=== PATIENT | female | born 1980 | race Caucasian/White ===

== ENCOUNTER → 2023-11-18 08:17 | Outpatient (REF) | payer BC, SELFPAY ==
[2023-11-18 09:02] LABS: % Basophils 0.5 % (0-2); % Eosinophils 3.3 % (0-6); % Immature Granulocytes 0.4 % (0-0.5); % Lymphocytes 27.2 % (20.5-51.1); % Monocytes 5.4 % (1.7-9.3); % Neutrophils 63.2 % (42.2-75.2); Absolute Eosinophils 0.2 10^3/uL (0-0.7); Absolute Lymphocytes 1.5 10^3/uL (1.2-3.4); Absolute Monocytes 0.3 10^3/uL (0.1-0.6); Absolute Neutrophils 3.5 10^3/uL (1.4-6.5); Hematocrit 37.2 % (37.0-47.0); Hemoglobin 12.6 g/dL (12.0-16.0); Mean Corp Hgb Conc. 33.9 g/dL (33.0-37.0); Mean Corpuscular Hgb 29.6 pg (27.0-31.0); Mean Corpuscular Volume 87.3 fL (81.0-99.0); Mean Platelet Volume 9.6 fL (7.4-10.4); Nucleated Red Blood Cells % 0 %; Platelet Count 221 10^3/uL (130-400); Red Blood Cell Count 4.26 10^6/uL (4.20-5.40); White Blood Cell Count 5.5 10^3/uL (4.8-10.8)
[2023-11-18 10:26] LABS: Erythrocyte Sed Rate 1 mm/hour (0-20)
[2023-11-18 11:21] LABS: ALT (SGPT) 15 U/L (0-35); AST (SGOT) 20 U/L (14-36); Albumin 3.9 g/dl (3.5-5.0); Alkaline Phosphatase 58 U/L (38-126); Blood Urea Nitrogen 12 mg/dl (7-17); Calcium 9.2 mg/dl (8.4-10.2); Carbon Dioxide 27 mmol/L (22-30); Chloride 102 mmol/L (98-107); Glucose 104 mg/dl (70-99); Potassium 4.2 mmol/L (3.5-5.1); Sodium 138 mmol/L (135-145); Total Bilirubin 0.4 mg/dl (0.2-1.3); Total Protein 7.3 g/dl (6.3-8.2); eGFR > 60.00
[2023-11-18 11:44] LABS: TSH Reflex To Free T4 2.27 uIU/ml (0.47-4.68)
[2023-11-18 11:48] LABS: Ferritin 15.4 ng/ml (6.24-137)
[2023-11-18 12:28] LABS: Folate 12.9 ng/ml (2.76-20)
[2023-11-18 13:29] LABS: Vitamin B12 414 pg/ml (239-931)
[2023-11-20 02:54] LABS: ANA, IgG Reflex to HEp-2 None Detected (None Detected)
== END ==
LOC: REG 08:17
PROVIDERS: ATTENDING PHYSICIAN Psychiatry & Neurology Neurology
DX: G43.709 Chronic migraine without aura, not intractable, without status migrainosus (principal)
CPT/HCPCS: 36415; 80053; 82607; 82728; 82746; 84443; 85025; 85652; 86038; 86140

== ENCOUNTER 2024-01-13 16:06 | Emergency (ER) | payer BC, SELFPAY ==
[2024-01-13 16:08] VITALS: BP 181/123
[2024-01-13 17:12] VITALS: BP 181/107; BMI 31.8
[2024-01-13 17:28] LABS: % Basophils 0.2 % (0-2); % Eosinophils 0.6 % (0-6); % Immature Granulocytes 0.4 % (0-0.5); % Lymphocytes 26.5 % (20.5-51.1); % Neutrophils 66.3 % (42.2-75.2); Absolute Eosinophils 0.1 10^3/uL (0-0.7); Absolute Monocytes 0.7 10^3/uL (0.1-0.6); Absolute Neutrophils 7.5 10^3/uL (1.4-6.5); Hematocrit 40.1 % (37.0-47.0); Hemoglobin 13.2 g/dL (12.0-16.0); Mean Corp Hgb Conc. 32.9 g/dL (33.0-37.0); Mean Corpuscular Hgb 29.1 pg (27.0-31.0); Mean Corpuscular Volume 88.5 fL (81.0-99.0); Mean Platelet Volume 9.3 fL (7.4-10.4); Nucleated Red Blood Cells % 0 %; Platelet Count 248 10^3/uL (130-400); Red Blood Cell Count 4.53 10^6/uL (4.20-5.40); Red Cell Dist. Width 12.4 % (11.5-14.5); White Blood Cell Count 11.3 10^3/uL (4.8-10.8)
[2024-01-13 17:29] LABS: Urine Albumin Negative (Neg - Trace); Urine Bilirubin Negative (Negative); Urine Character Clear (Clear); Urine Color Straw; Urine Glucose Negative (Negative); Urine Ketone Negative (Negative); Urine Leukocyte 1+ (Negative); Urine Nitrite Negative (Negative); Urine Occult Blood Negative (Negative); Urine Urobilinogen Negative (Neg - 1+)
[2024-01-13 17:36] LABS: Urine Red Blood Cell None Seen /HPF (0-2)
[2024-01-13 17:43] LABS: ALT (SGPT) 15 U/L (0-35); AST (SGOT) 21 U/L (14-36); Albumin 4.5 g/dl (3.5-5.0); Alkaline Phosphatase 67 U/L (38-126); Blood Urea Nitrogen 14 mg/dl (7-17); Calcium 10.2 mg/dl (8.4-10.2); Carbon Dioxide 30 mmol/L (22-30); Chloride 99 mmol/L (98-107); Estimated Creatinine Clearance 97 ml/min; Glucose 86 mg/dl (70-99); Potassium 3.8 mmol/L (3.5-5.1); Sodium 135 mmol/L (135-145); Total Bilirubin 0.5 mg/dl (0.2-1.3); Total Protein 7.8 g/dl (6.3-8.2); eGFR > 60.00
[2024-01-13 17:51] LABS: HCG, Serum Qualitative Screen Negative
[2024-01-13 17:52] LABS: Lipase 321 U/L (23-300)
--- NOTE | 2024-01-13 19:38 | ED.GENMED ---
History of Present Illness
<Marcial Gupta Jr., PA-C - Last Filed: 01/14/24 09:08>
General
Chief Complaint: Abdominal Pain
Source: patient
Exam Limitations: none
Time Seen by Provider: 01/13/24 16:55
Nursing documentation reviewed up to this point in time: agreed with
Travel History
Have you had any contact with someone who has COVID-19?: No
Do you have any symptoms of coronavirus? Fever > 100 degrees, chills, cough, shortness of breath, sore throat, loss of taste or smell, muscle aches, or headache?: No
History of Present Illness
History of Present Illness:
43-year-old female with past medical history of ovarian cyst previous right-sided ovary and fallopian tube removed tubal ligation presenting to the emergency department today with concerns of left-sided pelvic discomfort intermittently over the past
few weeks today has been nonstop and progressive issue. She claims that this feels similar to previous ovarian torsion that she had in the past. Denies any vaginal bleeding discharge nausea vomiting or diarrhea.
Review of Systems
<Marcial Gupta Jr., PA-C - Last Filed: 01/14/24 09:08>
Review of Systems
Allergies reviewed?: Yes
All Other Systems: ROS reviewed and negative except as documented in HPI and ROS
Phy Exam
<Marcial Gupta Jr., PA-C - Last Filed: 01/14/24 09:08>
Physical Exam
Physical Exam:
GENERAL: Alert , in no apparent distress
EYE: pupils equal and reactive
NECK: Supple, no significant adenopathy.
ENT: o/p clr, mmm.
CARDIAC: Regular rate and rhythm .
LUNGS: Clear breath sounds bilaterally, no acute respiratory distress, no wheezes/rales/rhonchi
ABDOMEN: Left lower abdomen was benign but when pressing on the more pelvic region there was some tenderness. Soft, without focal tenderness, no r/g, no cvat
NEUROLOGICAL: Alert and oriented, no focal neuro deficits
SKIN: Warm and dry, skin intact.
MUSCULOSKELETAL: No edema, well perfused.
PSYCH: Normal and appropriate interaction.
Course
<Marcial Gupta Jr., PA-C - Last Filed: 01/14/24 09:08>
Orders/Labs/Results
Orders:
Orders
01/13/24 17:13
Complete Blood Count/With Diff Urgent
Comprehensive Metabolic Panel Urgent
HCG, Serum Qualitative Screen Urgent
Comment: ADD ON
Lipase Urgent
Urinalysis Reflex To Culture Urgent
Date Specimen was Collected: 01/13/24
Time Specimen was Collected: 17:11
Urine Microscopic Reflex Cult Urgent
Urine Culture Urgent
TYRELL Source: U
Specimen Description:
Date Specimen was Collected: 01/13/24
Time Specimen was Collected: 17:11
01/13/24 17:21
Add On- LAB Urgent
Tests Added?: hcg qual
Pelvis (Non Obstetric) US [US Pelvis Only (non-obstetric)] Urgent
Comment:
Reason For Exam: left pelvic pain hx of torsion
01/13/24 20:38
CT Abd/Pel (IV only)-DH only Urgent
Comment:
Reason For Exam: llq pain
Abnormal Lab Results
01/13/24
17:13
WBC 11.3 H 10^3/uL
(4.8-10.8)
MCHC 32.9 L g/dL
(33.0-37.0)
Absolute Neuts (auto) 7.5 H 10^3/uL
(1.4-6.5)
Absolute Monos (auto) 0.7 H 10^3/uL
(0.1-0.6)
Lipase 321 H U/L
(23-300)
Leukocyte Esterase Rfl 1+ A
(Negative)
01/13/24 17:13
01/13/24 17:13
Vital Signs
Initial and Last Documented VS:
Initial Vital Signs
Temp Pulse Resp BP Pulse Ox
98.4 F 107 18 181/123 100
01/13/24 16:08 01/13/24 16:08 01/13/24 16:08 01/13/24 16:08 01/13/24 16:08
Last Documented Vital Signs
Temp Pulse Resp BP Pulse Ox
98.6 F 74 18 136/91 99
01/13/24 17:12 01/13/24 21:27 01/13/24 21:27 01/13/24 21:27 01/13/24 21:27
<Nathan Oneill MD - Last Filed: 01/13/24 22:08>
Orders/Labs/Results
Orders:
Orders
01/13/24 17:13
Complete Blood Count/With Diff Urgent
Comprehensive Metabolic Panel Urgent
HCG, Serum Qualitative Screen Urgent
Comment: ADD ON
Lipase Urgent
Urinalysis Reflex To Culture Urgent
Date Specimen was Collected: 01/13/24
Time Specimen was Collected: 17:11
Urine Microscopic Reflex Cult Urgent
Urine Culture Urgent
TYRELL Source: U
Specimen Description:
Date Specimen was Collected: 01/13/24
Time Specimen was Collected: 17:11
01/13/24 17:21
Add On- LAB Urgent
Tests Added?: hcg qual
Pelvis (Non Obstetric) US [US Pelvis Only (non-obstetric)] Urgent
Comment:
Reason For Exam: left pelvic pain hx of torsion
01/13/24 20:38
CT Abd/Pel (IV only)-DH only Urgent
Comment:
Reason For Exam: llq pain
Abnormal Lab Results
01/13/24
17:13
WBC 11.3 H 10^3/uL
(4.8-10.8)
MCHC 32.9 L g/dL
(33.0-37.0)
Absolute Neuts (auto) 7.5 H 10^3/uL
(1.4-6.5)
Absolute Monos (auto) 0.7 H 10^3/uL
(0.1-0.6)
Lipase 321 H U/L
(23-300)
Leukocyte Esterase Rfl 1+ A
(Negative)
01/13/24 17:13
01/13/24 17:13
Vital Signs
Initial and Last Documented VS:
Initial Vital Signs
Temp Pulse Resp BP Pulse Ox
98.4 F 107 18 181/123 100
01/13/24 16:08 01/13/24 16:08 01/13/24 16:08 01/13/24 16:08 01/13/24 16:08
Last Documented Vital Signs
Temp Pulse Resp BP Pulse Ox
98.6 F 74 18 136/91 99
01/13/24 17:12 01/13/24 21:27 01/13/24 21:27 01/13/24 21:27 01/13/24 21:27
<Marcial Gupta Jr., PA-C - Last Filed: 01/14/24 09:08>
MDM/Problems Addressed
MDM/Problems Addressed:
43-year-old female presenting to the emergency department today with concerns of left-sided pelvic discomfort intermittently over the past few weeks but persisting today. Upon arrival mildly tachycardic and hypertensive otherwise vital signs
normal. White count 11.3 urinalysis without signs of infection otherwise unremarkable plan for ultrasound for further assessment of the ovary. Ultrasound without evidence of emergent pathology patient with ongoing discomfort plan for CT scan for
further assessment. Case transition to attending physician Dr. Oneill pending CT results.
<Marcial Gupta Jr., PA-C - Last Filed: 01/14/24 09:08>
*Critical Care Note
Total Time (30-74mins, 75-104mins- exclusive of procedures): Not Applicable
<Nathan Oneill MD - Last Filed: 01/13/24 22:08>
Update Note
Update Note:
CT scan report reviewed with the patient. Advised to return to ED with worsening symptoms, i.e. fever/worsening pain/vomiting. Patient expresses understanding at time of discharge. Otherwise, patient is afebrile, hemodynamically stable and nontoxic
appearing at time of discharge.
ED Attending Note
<Marcial Gupta Jr., PA-C - Last Filed: 01/14/24 09:08>
-
Portions of this chart may have been created with voice recognition software.� Occasional wrong word or��sound alike� substitutions may have occurred due to the inherent limitations of voice recognition software.
Discharge Plan
Departure
Patient Disposition: Home (Routine Discharge)
Date of Disposition: 01/13/24
Time of Disposition: 22:07
Patient with high blood pressure during this ER visit?: Yes
Condition: Good
Discharge Problem:
Abdominal pain
Instructions: Abdominal Pain
Prescriptions:
No Action
almotriptan malate 12.5 mg Tablet
12.5 mg PO PRN PRN (Reason: migraines)
amitriptyline 10 mg Tablet
30 mg PO HS
Referrals:
Dakotah Gomez DO [Family Provider] -
Activity Restrictions/Additional Instructions:
As discussed, please follow-up with your primary care physician with any further concerns. Please return to ED with worsening symptoms, i.e. fever/worsening pain/vomiting.
Interventions
Interventions:
*Risk Screen - Suicide Last Done: 01/13/24 16:08
*General Assessment Last Done: 01/13/24 16:08
*Neglect/Abuse Screening Last Done: 01/13/24 16:08
ED- Fall Risk Assessment Last Done: 01/13/24 17:12
*ED COVID-19 Vaccine History Last Done: 01/13/24 16:08
*Nursing Disposition Last Done: 01/13/24 22:12
KG-Krlcnc-Qdqrduxoax Assessment Last Done: 01/13/24 17:12
Discharge Date and Time
Discharge Date/Time: 01/13/24 22:13
Print Language: MALTESE
[2024-01-13 21:27] VITALS: BP 136/91
== END 2024-01-13 22:13 | disposition home or self-care (01) ==
LOC: EMR 16:06
PROVIDERS: Physician Assistant; EMERGENCY PHYSICIAN Emergency Medicine; FAMILY PHYSICIAN Family Medicine
DX: R10.9 Unspecified abdominal pain (principal); I10 Essential (primary) hypertension; Z90.721 Acquired absence of ovaries, unilateral; Z98.51 Tubal ligation status
CPT/HCPCS: 99284; 74177; 76856; 80053; 81003; 81015; 83690; 84703; 85025; 87086; Q9967

== ENCOUNTER → 2024-02-16 08:33 | Outpatient (REF) | payer BC, SELFPAY ==
[2024-02-16 09:34] LABS: Glycohemoglobin (HgbA1c) 5.4 % (4.0-5.6)
[2024-02-16 11:03] LABS: HDL Cholesterol 87 mg/dl; LDL Cholesterol, Calculated 112 mg/dl; Total Cholesterol 226 mg/dl (50-199); Triglyceride 137 mg/dl (10-149); Very Low Density Lipoprotein 27 mg/dl (0-30)
== END ==
LOC: REG 08:33
PROVIDERS: ATTENDING PHYSICIAN Nurse Practitioner Adult Health; FAMILY PHYSICIAN Family Medicine
DX: G43.709 Chronic migraine without aura, not intractable, without status migrainosus (principal); R79.82 Elevated C-reactive protein (CRP); Z00.00 Encounter for general adult medical examination without abnormal findings
CPT/HCPCS: 36415; 80061; 83036; 86140

== ENCOUNTER → 2024-02-29 18:33 | Outpatient (REF) | payer BC, SELFPAY | LOC: MRI 3T 18:33 | PROVIDERS: ATTENDING PHYSICIAN Nurse Practitioner Adult Health; FAMILY PHYSICIAN Family Medicine | DX: G43.019 Migraine without aura, intractable, without status migrainosus (principal); G43.709 Chronic migraine without aura, not intractable, without status migrainosus | CPT/HCPCS: 70553; A9575 ==

== ENCOUNTER 2024-03-16 06:30 | Day surgery (SDC) | payer BC, SELFPAY ==
[2024-03-08 07:49] VITALS: BMI 30.4
[2024-03-08 08:50] LABS: % Basophils 0.8 % (0-2); % Immature Granulocytes 0.4 % (0-0.5); % Lymphocytes 31.8 % (20.5-51.1); Absolute Eosinophils 0.2 10^3/uL (0-0.7); Absolute Lymphocytes 1.7 10^3/uL (1.2-3.4); Absolute Monocytes 0.4 10^3/uL (0.1-0.6); Hematocrit 38.2 % (37.0-47.0); Hemoglobin 12.4 g/dL (12.0-16.0); Mean Corp Hgb Conc. 32.5 g/dL (33.0-37.0); Mean Corpuscular Hgb 29.2 pg (27.0-31.0); Mean Corpuscular Volume 90.1 fL (81.0-99.0); Mean Platelet Volume 9.8 fL (7.4-10.4); Nucleated Red Blood Cells % 0 %; Platelet Count 219 10^3/uL (130-400); Red Blood Cell Count 4.24 10^6/uL (4.20-5.40); Red Cell Dist. Width 12.6 % (11.5-14.5); White Blood Cell Count 5.3 10^3/uL (4.8-10.8)
[2024-03-08 09:12] LABS: Blood Urea Nitrogen 12 mg/dl (7-17); Calcium 9.5 mg/dl (8.4-10.2); Carbon Dioxide 26 mmol/L (22-30); Chloride 105 mmol/L (98-107); Estimated Creatinine Clearance 100 ml/min; Glucose 92 mg/dl (70-99); Potassium 3.9 mmol/L (3.5-5.1); Sodium 138 mmol/L (135-145); eGFR > 60.00
[2024-03-08 10:30] LABS: Beta HCG Quantitative < 2.39 mIU/ml
[2024-03-16] VITALS (9 sets, daily range): BP systolic 113–145; BP diastolic 76–100; BMI 30.4
[2024-03-16] MEDS: NORMOSOL-R 1000 IV (08:30)
[2024-03-16] MEDS: TYLENOL 1000 MG PO (08:35)
[2024-03-16] MEDS: SUBLIMAZE 25 MCG IV (10:54)
--- NOTE | 2024-03-18 15:12 | W.IMMPOSTOP ---
Addendum entered and electronically signed by Kristin Weaver DO 03/18/24 15:39:
Findings: 6:00 AW and mosaic pattern noted. Appearance c/w HSIL
Original Note:
Surgical Immed Post Op Note
-
Primary Surgeon: Kristin Weaver DO
Assisting Surgeon: none
Pre-op Diagnosis: Severe cervical dysplasia NICO 2-3, menorrhagia, fibroids; uterine prolapse, cystocele
Post-op Diagnosis: same
Procedure Performed: Hysteroscopy D&C, Cold knife cone biopsy. ecc
Anesthesia Type: general LMA
Specimen / Cultures: 1. endometrial curettings 2. cone cervical biopsy 3. ecc
Estimated Blood Loss: 5 ml
Complications: none
Operative Findings: Hysteroscopy D&C Findings: Uterus sounds to 11 cm, bilateral tubal ostia seen. No intrauterine lesion seen. Colposcopy findings: acetowhite uptake and mosaic vessel pattern seen at 12:00, 3:00, 4:00. Due to size of TZ which is
smaller than largest Loop, cold knife cone was performed.
Pitressin Soln 20 Units in 30ml NSS used. 15 ml used.
Complications: none
Counts correct times 2.
Stable to recovery.
== END 2024-03-16 12:02 | disposition home or self-care (01) ==
LOC: SDS 06:30
PROVIDERS: ATTENDING PHYSICIAN Obstetrics & Gynecology; FAMILY PHYSICIAN Family Medicine
DX: D06.0 Carcinoma in situ of endocervix (principal); D25.9 Leiomyoma of uterus, unspecified; N81.4 Uterovaginal prolapse, unspecified
CPT/HCPCS: 57520; 58558; 88305; 88307; 36415; 80048; 84702; 85025; 86850; 86900; 86901; 88341; 88342

== ENCOUNTER → 2024-06-28 16:49 | Outpatient (REF) | payer BC, SELFPAY | LOC: MRI 3T 16:49 | PROVIDERS: ATTENDING PHYSICIAN Obstetrics & Gynecology; FAMILY PHYSICIAN Family Medicine | DX: D06.7 Carcinoma in situ of other parts of cervix (principal) | CPT/HCPCS: 72197; A9575 ==

== ENCOUNTER 2024-07-07 06:10 | Day surgery (SDC) | payer BC, OTHER, SELFPAY ==
[2024-07-05 07:16] VITALS: BMI 31.1
[2024-07-05 09:04] LABS: % Basophils 0.8 % (0-2); % Eosinophils 4.3 % (0-6); % Immature Granulocytes 0.5 % (0-0.5); % Lymphocytes 27.2 % (20.5-51.1); % Monocytes 6.5 % (1.7-9.3); % Neutrophils 60.7 % (42.2-75.2); Absolute Basophils 0.1 10^3/uL (0-0.2); Absolute Eosinophils 0.3 10^3/uL (0-0.7); Absolute Lymphocytes 1.8 10^3/uL (1.2-3.4); Absolute Monocytes 0.4 10^3/uL (0.1-0.6); Hematocrit 38.8 % (37.0-47.0); Mean Corp Hgb Conc. 33.5 g/dL (33.0-37.0); Mean Corpuscular Hgb 29.7 pg (27.0-31.0); Mean Corpuscular Volume 88.6 fL (81.0-99.0); Mean Platelet Volume 9.8 fL (7.4-10.4); Nucleated Red Blood Cells % 0 %; Platelet Count 257 10^3/uL (130-400); Red Blood Cell Count 4.38 10^6/uL (4.20-5.40); Red Cell Dist. Width 12.3 % (11.5-14.5); White Blood Cell Count 6.5 10^3/uL (4.8-10.8)
[2024-07-05 10:27] LABS: Blood Urea Nitrogen 13 mg/dl (7-17); Calcium 9.4 mg/dl (8.4-10.2); Carbon Dioxide 26 mmol/L (22-30); Chloride 102 mmol/L (98-107); Estimated Creatinine Clearance 89 ml/min; Glucose 96 mg/dl (70-99); Potassium 4.2 mmol/L (3.5-5.1); Sodium 139 mmol/L (135-145); eGFR > 60.00
[2024-07-05 10:37] LABS: Beta HCG Quantitative < 2.39 mIU/ml
[2024-07-07] VITALS (16 sets, daily range): BP systolic 106–152; BP diastolic 62–103; BMI 31.1
[2024-07-07] MEDS: HEPARIN 5000 UNITS SC (07:02)
[2024-07-07] MEDS: TYLENOL 1000 MG PO (07:02)
[2024-07-07] MEDS: EMEND 40 MG PO (07:02)
[2024-07-07] MEDS: NEURONTIN 300 MG PO (07:02)
--- NOTE | 2024-07-07 10:16 | W.IMMPOSTOP ---
Surgical Immed Post Op Note
-
Primary Surgeon: Kristin Weaver DO
Assisting Surgeon: CHRISTEN Aguilar
Pre-op Diagnosis: Menorrhagia, fibroid uterus, high grade cervical dysplasia s/p LEEP, uterine prolapse
Post-op Diagnosis: same; endometriosis; abdominal and pelvic adhesions
Procedure Performed: Robotic assisted total laparoscopic hysterectomy, left salpingectomy, lysis adhesions
Anesthesia Type: general ET, Dr. Snow
Specimen / Cultures: uterus, cervix, left fallopian tube
Estimated Blood Loss: 10ml
Complications: none
Operative Findings: Uterus with fibroids, endometriosis on uterine serosa; left fallopian tube with adhesions to bowel. Small bowel adhesions to posterior uterus in fundal region.
Endometriosis noted left pelvic side wall near ureter. Omental adhesions to anterior abdominal wall.
[place] clear yellow urine
Counts correct times 2.
Stable and care handed off to Dr Felder
[2024-07-07] MEDS: ZOFRAN 4 MG IV (13:24)
[2024-07-07] MEDS: COMPAZINE 5 MG IV (14:43)
== END 2024-07-07 17:27 | disposition home or self-care (01) ==
LOC: SDS 06:10
PROVIDERS: ATTENDING PHYSICIAN Obstetrics & Gynecology; FAMILY PHYSICIAN Family Medicine; REFERRING PHYSICIAN Obstetrics & Gynecology
DX: N81.2 Incomplete uterovaginal prolapse (principal); N39.3 Stress incontinence (female) (male); N92.0 Excessive and frequent menstruation with regular cycle; N94.6 Dysmenorrhea, unspecified; N80.30 Endometriosis of pelvic peritoneum, unspecified; N80.202 Endometriosis of left fallopian tube, unspecified depth; D25.9 Leiomyoma of uterus, unspecified; Z87.410 Personal history of cervical dysplasia; N36.41 Hypermobility of urethra; N72 Inflammatory disease of cervix uteri; N80.03 Adenomyosis of the uterus
CPT/HCPCS: 58571; 57283; 57260; 57288; 58662; 88305; 36415; 80048; 84702; 85025; 86850; 86900; 86901; C1771

== ENCOUNTER → 2024-07-14 13:37 | Outpatient (REF) | payer BC, SELFPAY ==
[2024-07-14 15:01] LABS: Urine Albumin Trace (Neg - Trace); Urine Bilirubin Negative (Negative); Urine Character Clear (Clear); Urine Color Yellow; Urine Glucose Negative (Negative); Urine Ketone Negative (Negative); Urine Leukocyte 2+ (Negative); Urine Nitrite Negative (Negative); Urine Occult Blood 1+ (Negative); Urine Urobilinogen Negative (Neg - 1+)
[2024-07-14 15:06] LABS: Urine Bacteria Few (Negative); Urine Red Blood Cell 0-2 /HPF (0-2); Urine White Cell 40-50 /HPF (0-5)
== END ==
LOC: REG 13:37
PROVIDERS: ATTENDING PHYSICIAN Obstetrics & Gynecology; FAMILY PHYSICIAN Family Medicine
DX: N39.0 Urinary tract infection, site not specified (principal)
CPT/HCPCS: 81003; 81015; 87077; 87086; 87186

== ENCOUNTER → 2024-10-17 11:48 | Outpatient (REF) | payer BC, SELFPAY ==
[2024-10-17 12:56] LABS: Urine Albumin Negative (Neg - Trace); Urine Bilirubin 1+ (Negative); Urine Character Clear (Clear); Urine Glucose Negative (Negative); Urine Ketone Negative (Negative); Urine Leukocyte Trace (Negative); Urine Nitrite Positive (Negative); Urine Occult Blood Trace (Negative); Urine Urobilinogen Negative (Neg - 1+)
[2024-10-17 13:07] LABS: Urine Color Orange
[2024-10-17 13:34] LABS: Urine Bacteria Few (Negative); Urine Red Blood Cell 0-2 /HPF (0-2)
== END ==
LOC: REG 11:48
PROVIDERS: ATTENDING PHYSICIAN Obstetrics & Gynecology
DX: N39.0 Urinary tract infection, site not specified (principal)
CPT/HCPCS: 81003; 81015; 87086